=== PATIENT | female | born 1970 | race African-American/Black ===

== ENCOUNTER 2017-07-31 21:28 | Emergency (ER) | payer SELFPAY ==
[2017-07-31] MEDS ORDERED: Morphine 4 MG/ML Carpuject ONE (22:00)
[2017-07-31 22:11] LABS: #Basophils 0.2 thou/uL (0.0-0.2); #Eosinphils 0.1 thou/uL (0.0-0.7); #Lymphocytes 2.9 thou/uL (1.20-3.40); #Monocytes 0.8 thou/uL (0.11-0.59); #Neutrophils 9.2 thou/uL (1.40-6.50); %Basophils 1.3 % (0.0-1.0); %Eosinophils 0.9 % (0.0-10.0); %Lymphocytes 21.6 % (21.0-51.0); %Monocytes 6.4 % (0.0-10.0); %Neutrophils 69.9 % (42.0-75.0); Hemoglobin 14.1 g/dL (12.0-16.0); Mean Corpuscular Hemoglobin 30.5 pg (27.0-31.0); Mean Corpuscular Volume 95.3 fl (81.0-99.0); Mean Platelet Volume 6.1 fL (7.4-10.4); Platelet Count 313 thou/uL (130-400); Red Blood Cell (RBC) Count 4.63 mill/uL (4.20-5.40); White Blood Cell (WBC) Count 13.2 thou/uL (4.8-10.8)
[2017-07-31 22:40] LABS: CKMB 1.1 ng/mL (0-6.6); Troponin I Less than 0.010 ng/mL (< 0.028)
[2017-07-31 22:42] LABS: ALT (SGPT) 12 U/L (8-55); AST (SGOT) 18 U/L (5-34); Albumin 4.5 g/dL (3.5-5.0); Alkaline Phosphatase 69 U/L (40-150); Anion Gap 15 mmol/L (10-20); BUN (Urea Nitrogen) 9 mg/dL (7.0-18.7); Bilirubin, Total 0.5 mg/dL (0.2-1.2); CK (CPK) 131 U/L (29-168); Calc. Creatinine Clearance 0 mL/min (70-130); Calcium 10.3 mg/dL (7.8-10.44); Carbon Dioxide 24 mmol/L (22-29); Chloride 104 mmol/L (98-107); Estimated GFR-MDRD 73; Globulin 3.9 g/dL (2.4-3.5); Glucose 103 mg/dL (70-105); Lipase 17 U/L (8-78); Potassium 3.8 mmol/L (3.5-5.1); Protein, Total 8.4 g/dL (6.0-8.3); Sodium 139 mmol/L (136-145)
--- NOTE | 2017-07-31 22:47 | RAD ---
PORTABLE CHEST: 07/31/17 HISTORY: Chest pain. The lungs are clear. Heart and mediastinum are unremarkable. IMPRESSION: Negative portable chest. POS: [facility]
[2017-07-31] MEDS ORDERED: Ondansetron HCl/PF 4 MG/2 ML Vial ONE ×2 (23:15→23:18)
--- NOTE | 2017-07-31 23:29 | NM ---
VENTILATION PERFUSION LUNG SCAN: 07/31/17 HISTORY: Chest pain. Correlation with portable chest from earlier this evening. Ventilation scan performed using 5 millicuries of inhaled Xenon. Ventilation images are unremarkable. No ventilation defect. No air trapping. Perfusion scan performed with administration of 6 millicuries of technetium labeled MAA IV. The lungs imaged in eight projections. There is normal perfusion bilaterally. There is no evidence of pulmonary embolus. IMPRESSION: Normal VQ scan. POS: [facility]
[2017-08-01] MEDS ORDERED: Promethazine HCl 25 MG/ML VIAL ONE (00:53)
[2017-08-01] MEDS ORDERED: Ketorolac Tromethamine 30 MG/ML VIAL ONE (00:53)
--- NOTE | 2017-08-01 08:44 | ULT ---
PRELIMINARY REPORT/[facility]/EMERGENCY AFTER HOURS PROCEDURE: EXAM: US Abdomen Limited, Right Upper Quadrant EXAM DATE/TIME: 08/01/2017 12:14 AM CLINICAL HISTORY: 46 years old, female; Pain; Other: Ruq, chest pain TECHNIQUE: Real-time ultrasound of the right upper quadrant with image documentation. COMPARISON: No relevant prior studies available. FINDINGS: Liver: Liver is normal in length with normal echogenicity. No intrahepatic bile duct dilation. Gallbladder: Gallbladder does not appear to contain stones. No evidence of gallbladder wall thickenin g. No evidence of pericholecystic fluid. Common bile duct: Common bile duct is normal in width at 3 mm. No stones. No dilation. Pancreas: Visualized portions of the pancreas appear normal. Right kidney: Right kidney 3.8 x 4.6 x 9.7 cm appears normal. No stones. No hydronephrosis. Free fluid: No evidence of free fluid. IMPRESSION: No evidence gallstones, biliary ductal dilatation, gallbladder wall thickening or pericholecystic flu id. Thank you for allowing us to participate in the care of your patient. Dictated and Authenticated by: Edward Barrios MD 08/01/2017 12:59 AM Central Time ([place] & [place]) FINAL REPORT EMERGENT AFTER HOURS RIGHT UPPER QUADRANT ABDOMINAL ULTRASOUND: FINDINGS/IMPRESSION: I agree with the findings and impression given in the preliminary report per [facility] physician. No significant abnormality. POS: [facility]
== END 2017-08-01 03:30 | disposition home or self-care (01) ==
LOC: ERS 21:28
DX: M94.0 Chondrocostal junction syndrome [Tietze] (principal); J45.909 Unspecified asthma, uncomplicated; F17.210 Nicotine dependence, cigarettes, uncomplicated
CPT/HCPCS: 71045; 76705; 78582; 80053; 82553; 83690; 84484; 85025; 93005; 96365; 96375; 99406; A9540; A9558; J1885; J2270; J2405; J2550

== ENCOUNTER 2017-11-23 11:17 | Emergency (ER) | payer SELFPAY ==
--- NOTE | 2017-11-23 13:15 | RAD ---
AP CHEST: Indication: Cough. Comparison: 07-31-17 IMPRESSION: No acute cardiopulmonary abnormality. Examination is not appreciably changed from the comparison stud y. POS: [facility]
== END 2017-11-23 12:52 | disposition home or self-care (01) ==
LOC: ERS 11:17
DX: J18.9 Pneumonia, unspecified organism (principal); F41.9 Anxiety disorder, unspecified; F17.210 Nicotine dependence, cigarettes, uncomplicated; J45.909 Unspecified asthma, uncomplicated
CPT/HCPCS: 71045

== ENCOUNTER 2018-05-05 22:26 | Emergency (ER) | payer SELFPAY ==
--- NOTE | 2018-05-06 13:54 | RAD ---
THREE VIEWS RIGHT FOOT 05/05/18 HISTORY: Right foot pain. FINDINGS: There is no fracture or dislocation seen. The Lisfranc joint is normally aligned. There is a lucency seen within the first metatarsal head which may represent subchondral cystic changes secondary to mil d osteoarthritis involving the first metatarsophalangeal joint. A tiny plantar calcaneal enthesophyte is seen. IMPRESSION: 1. No acute osseous abnormality right foot. 2. 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 POS: [facility]
== END 2018-05-05 23:48 | disposition home or self-care (01) ==
LOC: ERS 22:26
DX: S90.31XA Contusion of right foot, initial encounter (principal); F17.210 Nicotine dependence, cigarettes, uncomplicated; X58.XXXA Exposure to other specified factors, initial encounter

== ENCOUNTER 2018-10-25 02:45 | Emergency (ER) | payer SELFPAY ==
[2018-10-25] MEDS ORDERED: Ondansetron PF 4 MG/2 ML Vial ONE (03:19)
[2018-10-25] MEDS ORDERED: Morphine 4 MG/ML VIAL ONE (03:19)
[2018-10-25 03:24] LABS: #Basophils 0.1 thou/uL (0.0-0.2); #Monocytes 0.5 thou/uL (0.11-0.59); #Neutrophils 13.7 thou/uL (1.40-6.50); %Basophils 0.7 % (0.0-1.0); %Eosinophils 0.1 % (0.0-10.0); %Lymphocytes 12.2 % (21.0-51.0); %Monocytes 2.8 % (0.0-10.0); %Neutrophils 84.2 % (42.0-75.0); Hemoglobin 14.1 g/dL (12.0-16.0); Mean Corpuscular HGB CONC 32.3 g/dL (32.0-36.0); Mean Corpuscular Volume 95.9 fL (78.0-98.0); Mean Platelet Volume 6.4 fL (7.4-10.4); Platelet Count 285 thou/uL (130-400); RBC Distribution Width 13.2 % (11.5-14.5); Red Blood Cell (RBC) Count 4.55 mill/uL (4.20-5.40); White Blood Cell (WBC) Count 16.2 thou/uL (4.8-10.8)
[2018-10-25 03:27] LABS: Bilirubin Negative (Negative); Blood, Urine Negative (Negative); Clarity TURBID (Clear); Glucose, Urine (Dipstick) Negative (Negative); Leukocyte Negative (Negative); Nitrite Negative (Negative); Protein, Urine (Dipstick) 30 mg/dL (Neg-Trace); Specific Gravity, Urine 1.021 (1.002-1.036); Urobilinogen 0.2 mg/dL (0.2-1.0); pH, Urine 8.5 (5.0-9.0)
[2018-10-25 03:29] LABS: Bacteria/HPF None Seen HPF (None Seen); Squamous Epithelial 0-3 HPF (0-3); WBC/HPF 0-3 HPF (0-3)
[2018-10-25 03:37] LABS: Hyaline Casts/LPF NONE SEEN LPF (0-3 Hyaline)
[2018-10-25 03:38] LABS: Crystals/HPF 3+ AMORPH PHOS HPF (Negative)
[2018-10-25 03:41] LABS: ALT (SGPT) 12 U/L (8-55); AST (SGOT) 15 U/L (5-34); Albumin 4.3 g/dL (3.5-5.0); Alkaline Phosphatase 67 U/L (40-150); Anion Gap 12 mmol/L (10-20); BUN (Urea Nitrogen) 8 mg/dL (7.0-18.7); Bilirubin, Total 0.4 mg/dL (0.2-1.2); Calc. Creatinine Clearance 0 mL/min (70-130); Calcium 9.6 mg/dL (7.8-10.44); Carbon Dioxide 23 mmol/L (22-29); Chloride 105 mmol/L (98-107); Estimated GFR-MDRD Greater than 90; Globulin 3.8 g/dL (2.4-3.5); Glucose 121 mg/dL (70-105); Lipase 4 U/L (8-78); Potassium 3.9 mmol/L (3.5-5.1); Protein, Total 8.1 g/dL (6.0-8.3); Sodium 136 mmol/L (136-145)
[2018-10-25] MEDS ORDERED: diphenhydrAMINE 50 MG/ML VIAL ONE (04:14)
[2018-10-25] MEDS ORDERED: methylPREDNISolone Sod Succ/PF 125 MG/2 ML VIAL ONE (04:14)
[2018-10-25] MEDS ORDERED: Famotidine/PF 20 mg/2ml Vial ONE (04:15)
--- NOTE | 2018-10-25 07:05 | CT ---
ABDOMEN AND PELVIS CT WITH CONTRAST: Date: 10/25/18 INDICATION: Abdominal pain with nausea, vomiting, and diarrhea, new onset. FINDINGS: Mild volume loss is present at the lung bases. No acute abnormality of the solid abdominal organs. Ab dominal aorta is normal in caliber. The bowel is not reliably evaluated without enteric contrast. The re is a mild degree of nonspecific wall prominence suggested within the colon, diffusely. There is in completely evaluated hypodensity of left adnexa. No free air or significant ascites. There are mildly prominent bilateral inguinal chain lymph nodes. A small, noninflamed, fat-containing right inguinal hernia is present. No acute osseous abnormalities. IMPRESSION: 1. Findings which may be related to colitis, although incompletely evaluated. Correlate clinically. 2. Incompletely assessed hypodensity at the left adnexa. Recommend dedicated pelvic ultrasound in or neel to further characterize. 3. Nonspecific mild prominence of bilateral inguinal lymph nodes. POS: [facility]
--- NOTE | 2018-10-25 08:18 | ULT ---
PRELIMINARY REPORT/[facility]/EMERGENCY AFTER HOURS PROCEDURE: EXAM: US Abdomen Limited, Right Upper Quadrant EXAM DATE/TIME: 10/25/2018 3:54 AM CLINICAL HISTORY: 48 years old, female; Pain; Other: Upper abd pain, n/v/d TECHNIQUE: Imaging protocol: Real-time ultrasound of the abdomen with image documentation. Examination was focus ed on the right upper quadrant. COMPARISON: No relevant prior studies available. FINDINGS: Liver: Normal sonographic appearance of the liver. Gallbladder: No gallstones, wall thickening or pericholecystic fluid. Negative sonographic Sampson's s ign reported. Common bile duct: No intrahepatic nor extrahepatic biliary dilation. The common bile duct measures 0. 3 cm. Pancreas: The visualized portions of the pancreas are normal. Right kidney: Normal appearance of the right kidney with normal cortical echogenicity and without hyd ronephrosis or mass. The right kidney measures 9.4 x 5 x 5.9 cm. Portal venous: The main portal vein is patent with normal hepatopedal flow. IMPRESSION: Normal right upper quadrant ultrasound. No cholelithiasis. Thank you for allowing us to participate in the care of your patient. Dictated and Authenticated by: Cha Crowe MD 10/25/2018 4:49 AM Central Time ([place] & [place]) FINAL REPORT EMERGENCY AFTER HOURS RIGHT UPPER QUADRANT ULTRASOUND: Date: 10/25/18 HISTORY: Right upper quadrant pain. FINDINGS: Real-time imaging of the right upper quadrant was performed. This shows a normal appearing gallbladde r. Common duct is 2-3 mm. Visualized liver parenchyma shows no focal findings. Right kidney is normal in size and not obstructed. Pancreas is fairly well imaged and normal in appea dagmar. IMPRESSION: Unremarkable right upper quadrant ultrasound. This report is in agreement with the preliminary report issued by [facility]. POS: [facility]
[2018-10-25] MEDS ORDERED: ISOVUE-370 76%-LOCM 1 ML ONE (09:36)
== END 2018-10-25 07:09 | disposition home or self-care (01) ==
LOC: ERS 02:45
DX: K52.9 Noninfective gastroenteritis and colitis, unspecified (principal); J45.909 Unspecified asthma, uncomplicated; F41.9 Anxiety disorder, unspecified; F17.210 Nicotine dependence, cigarettes, uncomplicated
CPT/HCPCS: 36415; 74177; 76705; 80053; 81003; 81015; 83690; 84484; 85025; 96361; 96374; 96375; J1200; J2270; J2405; J2930; Q9966; S0028

== ENCOUNTER 2018-10-26 13:56 | Emergency (ER) | payer SELFPAY ==
[2018-10-26] MEDS ORDERED: Famotidine/PF 20 mg/2ml Vial ONE (14:51)
[2018-10-26] MEDS ORDERED: Ondansetron PF 4 MG/2 ML Vial ONE (14:53)
[2018-10-26 15:05] LABS: #Basophils 0.1 thou/uL (0.0-0.2); #Lymphocytes 2.4 thou/uL (1.20-3.40); #Neutrophils 14.2 thou/uL (1.40-6.50); %Basophils 0.6 % (0.0-1.0); %Eosinophils 0.1 % (0.0-10.0); %Lymphocytes 13.5 % (21.0-51.0); %Monocytes 5.6 % (0.0-10.0); %Neutrophils 80.2 % (42.0-75.0); Mean Corpuscular Hemoglobin 30.4 pg (27.0-31.0); Mean Corpuscular Volume 94.9 fL (78.0-98.0); Mean Platelet Volume 6.4 fL (7.4-10.4); Platelet Count 281 thou/uL (130-400); RBC Distribution Width 13.2 % (11.5-14.5); Red Blood Cell (RBC) Count 4.28 mill/uL (4.20-5.40); White Blood Cell (WBC) Count 17.7 thou/uL (4.8-10.8)
[2018-10-26] MEDS ORDERED: Ketorolac Tromethamine 30 MG/ML VIAL ONE (15:05)
[2018-10-26 15:28] LABS: ALT (SGPT) 13 U/L (8-55); AST (SGOT) 10 U/L (5-34); Albumin 4.1 g/dL (3.5-5.0); Alkaline Phosphatase 60 U/L (40-150); Anion Gap 11 mmol/L (10-20); BUN (Urea Nitrogen) 10 mg/dL (7.0-18.7); Bilirubin, Total 0.5 mg/dL (0.2-1.2); Calc. Creatinine Clearance 0 mL/min (70-130); Calcium 9.4 mg/dL (7.8-10.44); Carbon Dioxide 24 mmol/L (22-29); Chloride 107 mmol/L (98-107); Estimated GFR-MDRD Greater than 90; Globulin 3.5 g/dL (2.4-3.5); Glucose 96 mg/dL (70-105); Lipase 21 U/L (8-78); Potassium 3.4 mmol/L (3.5-5.1); Protein, Total 7.6 g/dL (6.0-8.3); Sodium 139 mmol/L (136-145)
[2018-10-26] MEDS ORDERED: Potassium Chloride 20 MEQ TAB ONE (16:37)
== END 2018-10-26 16:43 | disposition home or self-care (01) ==
LOC: ERS 13:56
DX: R10.13 Epigastric pain (principal); E87.6 Hypokalemia; J45.909 Unspecified asthma, uncomplicated; F41.9 Anxiety disorder, unspecified; F17.210 Nicotine dependence, cigarettes, uncomplicated
CPT/HCPCS: 80053; 83690; 85025; 96361; 96374; 96375; J1885; J2405; S0028

== ENCOUNTER 2019-10-27 09:44 | Emergency (ER) | payer OTHER, SELFPAY | END 2019-10-27 09:58 | disposition home or self-care (01) | LOC: ERS 09:44 | DX: J06.9 Acute upper respiratory infection, unspecified (principal); F41.9 Anxiety disorder, unspecified; J45.909 Unspecified asthma, uncomplicated; F17.210 Nicotine dependence, cigarettes, uncomplicated; Z79.51 Long term (current) use of inhaled steroids; Z79.899 Other long term (current) drug therapy | CPT/HCPCS: 87081; 87430; 99283 ==

== ENCOUNTER 2021-03-04 08:22 | Emergency (ER) | payer SELFPAY ==
[2021-03-04] MEDS ORDERED: Metoclopramide HCl 10 MG/2 ML VIAL ONE (11:05)
[2021-03-04] MEDS ORDERED: diphenhydrAMINE 50 MG/ML VIAL ONE (11:05)
[2021-03-04] MEDS ORDERED: methylPREDNISolone Sod Succ 40 MG VIAL ONE (11:08)
[2021-03-04 11:22] LABS: #Basophils 0.1 thou/uL (0.0-0.2); #Eosinphils 0.1 thou/uL (0.0-0.7); #Lymphocytes 2.1 thou/uL (1.20-3.40); #Monocytes 0.7 thou/uL (0.11-0.59); #Neutrophils 9.2 thou/uL (1.40-6.50); %Basophils 0.4 % (0.0-1.0); %Eosinophils 0.8 % (0.0-10.0); %Lymphocytes 17.5 % (21.0-51.0); %Neutrophils 75.3 % (42.0-75.0); Hemoglobin 13.1 g/dL (12.0-16.0); Mean Corpuscular HGB CONC 32.2 g/dL (32.0-36.0); Mean Corpuscular Hemoglobin 30.3 pg (27.0-31.0); Mean Corpuscular Volume 94.2 fL (78.0-98.0); Mean Platelet Volume 6.5 fL (7.4-10.4); Platelet Count 295 thou/uL (130-400); Red Blood Cell (RBC) Count 4.32 mill/uL (4.20-5.40); White Blood Cell (WBC) Count 12.2 thou/uL (4.8-10.8)
[2021-03-04 11:43] LABS: Anion Gap 9 mmol/L (10-20); BUN (Urea Nitrogen) 11 mg/dL (7.0-18.7); Calc. Creatinine Clearance 0 mL/min (70-130); Calcium 9.4 mg/dL (7.8-10.44); Carbon Dioxide 28 mmol/L (22-29); Chloride 104 mmol/L (98-107); Glucose 94 mg/dL (70-105); Potassium 3.8 mmol/L (3.5-5.1); Sodium 137 mmol/L (136-145)
[2021-03-04] MEDS ORDERED: Iopamidol-370 76% 500 ML 1 ML ONE (15:09)
== END 2021-03-04 13:51 | disposition home or self-care (01) ==
LOC: ERS 08:22
DX: R20.2 Paresthesia of skin (principal); R51.9 Headache, unspecified; J45.909 Unspecified asthma, uncomplicated; I10 Essential (primary) hypertension; D72.829 Elevated white blood cell count, unspecified; F17.210 Nicotine dependence, cigarettes, uncomplicated
CPT/HCPCS: 36415; 70496; 70498; 80048; 85025; 93005; 96374; 96375; J1200; J2765; J2920; Q9967

== ENCOUNTER 2021-03-31 16:24 | Emergency (ER) | payer SELFPAY ==
[2021-03-31] MEDS ORDERED: Lorazepam 2 MG/ML VIAL ONE (16:54)
[2021-03-31 17:24] LABS: #Basophils 0.1 thou/uL (0.0-0.2); #Eosinphils 0.2 thou/uL (0.0-0.7); #Lymphocytes 2.2 thou/uL (1.20-3.40); #Monocytes 0.6 thou/uL (0.11-0.59); #Neutrophils 11.6 thou/uL (1.40-6.50); %Basophils 0.7 % (0.0-1.0); %Eosinophils 1.2 % (0.0-10.0); %Monocytes 4.3 % (0.0-10.0); %Neutrophils 78.8 % (42.0-75.0); Hemoglobin 12.5 g/dL (12.0-16.0); Mean Corpuscular HGB CONC 33.3 g/dL (32.0-36.0); Mean Corpuscular Hemoglobin 31.3 pg (27.0-31.0); Mean Corpuscular Volume 93.9 fL (78.0-98.0); Mean Platelet Volume 6.1 fL (7.4-10.4); Platelet Count 301 thou/uL (130-400); RBC Distribution Width 13.6 % (11.5-14.5); White Blood Cell (WBC) Count 14.7 thou/uL (4.8-10.8)
[2021-03-31] MEDS ORDERED: Acetaminophen 500 MG TAB ONE (17:25)
[2021-03-31 17:39] LABS: BHCG - Serum Negative (NEGATIVE); Pregs Control Background? CLEAR/WHITE (CLR/WHITE); Pregs Control Bar Appear? YES (CONTROL BAR)
[2021-03-31 17:47] LABS: ALT (SGPT) 9 U/L (8-55); AST (SGOT) 14 U/L (5-34); Albumin 3.9 g/dL (3.5-5.0); Alkaline Phosphatase 81 U/L (40-110); Anion Gap 12 mmol/L (10-20); BUN (Urea Nitrogen) 9 mg/dL (7.0-18.7); Bilirubin, Total 0.4 mg/dL (0.2-1.2); Calc. Creatinine Clearance 0 mL/min (70-130); Calcium 9.5 mg/dL (7.8-10.44); Carbon Dioxide 25 mmol/L (22-29); Chloride 104 mmol/L (98-107); Globulin 3.2 g/dL (2.4-3.5); Glucose 93 mg/dL (70-105); Potassium 3.3 mmol/L (3.5-5.1); Protein, Total 7.1 g/dL (6.0-8.3); Sodium 138 mmol/L (136-145)
== END 2021-03-31 18:55 | disposition home or self-care (01) ==
LOC: ERS 16:24
DX: R06.4 Hyperventilation (principal); J45.909 Unspecified asthma, uncomplicated; I10 Essential (primary) hypertension; Z79.899 Other long term (current) drug therapy
CPT/HCPCS: 36415; 80053; 84703; 85025; 93005; 96374; J2060

== ENCOUNTER 2022-08-05 08:26 | Emergency (ER) | payer SELFPAY ==
[2022-08-05] MEDS ORDERED: Ondansetron ODT 4 MG TAB ONE (09:05)
== END 2022-08-05 09:30 | disposition home or self-care (01) ==
LOC: ERS 08:26
DX: K52.9 Noninfective gastroenteritis and colitis, unspecified (principal); I10 Essential (primary) hypertension; F17.210 Nicotine dependence, cigarettes, uncomplicated
CPT/HCPCS: 99283; Q0162

== ENCOUNTER 2022-08-11 15:30 | Emergency (ER) | payer SELFPAY ==
[2022-08-11 17:01] LABS: #Basophils 0.1 thou/uL (0.0-0.2); #Lymphocytes 2.1 thou/uL (1.20-3.40); #Neutrophils 9.1 thou/uL (1.40-6.50); %Basophils 0.6 % (0.0-1.0); %Eosinophils 0.4 % (0.0-10.0); %Monocytes 8.4 % (0.0-10.0); %Neutrophils 73.6 % (42.0-75.0); Hemoglobin 14.4 g/dL (12.0-16.0); Mean Corpuscular HGB CONC 31.9 g/dL (32.0-36.0); Mean Corpuscular Hemoglobin 29.7 pg (27.0-31.0); Mean Corpuscular Volume 93.2 fl (78.0-98.0); Mean Platelet Volume 7.4 fL (7.4-10.4); Platelet Count 299 10x3/uL (130-400); RBC Distribution Width 13.1 % (11.5-14.5); Red Blood Cell (RBC) Count 4.83 mill/uL (4.20-5.40); White Blood Cell (WBC) Count 12.3 10x3/uL (4.8-10.8)
[2022-08-11 19:22] LABS: ALT (SGPT) Less than 7 U/L (8-55); AST (SGOT) 15 U/L (5-34); Alkaline Phosphatase 64 U/L (40-110); Anion Gap 18 mmol/L (10-20); BUN (Urea Nitrogen) 51 mg/dL (7.0-18.7); Bilirubin, Total 0.7 mg/dL (0.2-1.2); Calc. Creatinine Clearance 0 mL/min (70-130); Calcium 9.1 mg/dL (7.8-10.44); Carbon Dioxide 25 mmol/L (22-29); Chloride 94 mmol/L (98-107); Estimated GFR 11; Globulin 3.2 g/dL (2.4-3.5); Glucose 103 mg/dL (70-105); Protein, Total 7.2 g/dL (6.0-8.3); Sodium 134 mmol/L (136-145)
== END 2022-08-11 19:23 | disposition left against medical advice (07) ==
LOC: ERS 15:30
DX: Z53.21 Procedure and treatment not carried out due to patient leaving prior to being seen by health care provider (principal)
CPT/HCPCS: 36415; 80053; 83690; 85025

== ENCOUNTER 2022-08-12 08:34 | Inpatient (IN) | payer SELFPAY ==
[2022-08-12 11:12] LABS: ALT (SGPT) 10 U/L (8-55); AST (SGOT) 19 U/L (5-34); Alkaline Phosphatase 64 U/L (40-110); Anion Gap 15 mmol/L (10-20); BUN (Urea Nitrogen) 55 mg/dL (7.0-18.7); Bilirubin, Total 0.4 mg/dL (0.2-1.2); Calc. Creatinine Clearance 0 mL/min (70-130); Calcium 9.5 mg/dL (7.8-10.44); Carbon Dioxide 27 mmol/L (22-29); Chloride 95 mmol/L (98-107); Estimated GFR 11; Globulin 3.7 g/dL (2.4-3.5); Glucose 105 mg/dL (70-105); Lipase 12 U/L (8-78); Potassium 2.7 mmol/L (3.5-5.1); Protein, Total 7.7 g/dL (6.0-8.3); Sodium 134 mmol/L (136-145)
[2022-08-12] MEDS ORDERED: Ondansetron PF 4 MG/2 ML Vial ONE (11:25)
[2022-08-12] MEDS ORDERED: Potassium Chloride 20 MEQ/100 ML PREMIX BAG ONE (11:25)
[2022-08-12 11:49] LABS: #Basophils 0.1 thou/uL (0.0-0.2); #Eosinphils 0.1 thou/uL (0.0-0.7); #Lymphocytes 2.4 thou/uL (1.20-3.40); #Monocytes 1.3 thou/uL (0.11-0.59); #Neutrophils 9.6 thou/uL (1.40-6.50); %Basophils 0.8 % (0.0-1.0); %Eosinophils 0.4 % (0.0-10.0); %Monocytes 9.5 % (0.0-10.0); %Neutrophils 71.3 % (42.0-75.0); Hemoglobin 13.6 g/dL (12.0-16.0); Mean Corpuscular HGB CONC 32.4 g/dL (32.0-36.0); Mean Corpuscular Volume 92.6 fl (78.0-98.0); Platelet Count 287 10x3/uL (130-400); Red Blood Cell (RBC) Count 4.54 mill/uL (4.20-5.40); White Blood Cell (WBC) Count 13.5 10x3/uL (4.8-10.8)
[2022-08-12] MEDS: Potassium Chloride 20 MEQ in Premix Bag 1 BAG IVPB SCH ×2 (12:42→12:44)
[2022-08-12 12:47] LABS: Amphetamine Not Detected (NotDetected); Barbiturates Screen Not Detected (NotDetected); Benzodiazepine Screen Not Detected (NotDetected); Cocaine Metabolite Screen Not Detected (NotDetected); Methadone Not Detected (NotDetected); Methamphetamine Not Detected (NotDetected); Opiate Screen Not Detected (NotDetected); Oxycodone Screen Not Detected (NotDetected); Phencyclidine (PCP) Not Detected (NotDetected); THC/Cannabinoid Screen Not Detected (NotDetected); Tricyclic Screen Not Detected (NotDetected)
[2022-08-12 13:26] LABS: Bacteria/HPF 2+ HPF (None Seen); Bilirubin Negative (Negative); Blood, Urine Negative (Negative); Clarity Clear (Clear); Glucose, Urine (Dipstick) Normal (Negative); Ketone, Urine Negative (Negative); Leukocyte 75 Leu/uL (Negative); Nitrite Negative (Negative); Protein, Urine (Dipstick) Negative (Neg-Trace); RBC/HPF None Seen HPF (0-3); Specific Gravity, Urine 1.006 (1.002-1.036); Squamous Epithelial 0-3 HPF (0-3); Urobilinogen Normal mg/dL (Less than 2)
[2022-08-12 14:35] LABS: #Basophils 0.1 thou/uL (0.0-0.2); #Eosinphils 0.1 thou/uL (0.0-0.7); #Lymphocytes 2.2 thou/uL (1.20-3.40); #Monocytes 1.7 thou/uL (0.11-0.59); %Basophils 0.8 % (0.0-1.0); %Eosinophils 0.7 % (0.0-10.0); %Lymphocytes 15.6 % (21.0-51.0); %Monocytes 12.1 % (0.0-10.0); %Neutrophils 70.9 % (42.0-75.0); Hemoglobin 13.5 g/dL (12.0-16.0); Mean Corpuscular HGB CONC 32.4 g/dL (32.0-36.0); Mean Corpuscular Hemoglobin 30.9 pg (27.0-31.0); Mean Corpuscular Volume 95.1 fl (78.0-98.0); Mean Platelet Volume 8.2 fL (7.4-10.4); Platelet Count 235 10x3/uL (130-400); Red Blood Cell (RBC) Count 4.39 mill/uL (4.20-5.40); White Blood Cell (WBC) Count 14.1 10x3/uL (4.8-10.8)
[2022-08-12 14:51] LABS: Troponin I Less than 0.010 ng/mL (< 0.028)
[2022-08-12 15:29] VITALS: BMI 25.2
[2022-08-12] MEDS ORDERED: FLU VACC QS2022-23(6MOS UP)/PF 60 MCG/0.5 ML SYRINGE IM ONE (15:30)
[2022-08-12 17:33] LABS: Troponin I Less than 0.010 ng/mL (< 0.028)
[2022-08-12] MEDS ORDERED: Ondansetron PF 4 MG/2 ML Vial IVP PRN (17:36)
[2022-08-12] MEDS ORDERED: Acetaminophen 650 MG Suppository PR PRN (17:36)
[2022-08-12] MEDS ORDERED: Ondansetron ODT 4 MG TAB PO PRN (17:36)
[2022-08-12] MEDS ORDERED: cefTRIAXone\\ROCEPHIN 1 GM in Sodium Chloride 0.9% 100 ML IVPB SCH (18:00)
[2022-08-12] MEDS ORDERED: Electrolyte Replacement Protocol 1 EACH FS SCH (18:00)
[2022-08-12] MEDS ORDERED: Potassium Chloride 20 MEQ TAB PO SCH (18:15)
[2022-08-12] MEDS ORDERED: Electrolyte Replacement Protocol FS PRN (18:15)
[2022-08-12] MEDS: Sodium Chloride 0.9% 1,000 ML IV SCH (18:18)
[2022-08-12 18:27] LABS: Magnesium 2.5 mg/dL (1.6-2.6)
[2022-08-12 19:19] LABS: SARS-CoV-2 NAA Rapid Test Not Detected (NotDetected)
[2022-08-12] MEDS: Acetaminophen 325 MG TAB PO PRN (21:42)
[2022-08-13] MEDS: Sodium Chloride 0.9% 1,000 ML IV SCH ×4 (05:10→22:55)
[2022-08-13 05:29] LABS: %Neutrophils 66.7 % (42.0-75.0); Hemoglobin 12.4 g/dL (12.0-16.0); Mean Corpuscular Hemoglobin 29.9 pg (27.0-31.0); Mean Corpuscular Volume 93.5 fl (78.0-98.0); Mean Platelet Volume 7.6 fL (7.4-10.4); Platelet Count 283 10x3/uL (130-400); RBC Distribution Width 12.9 % (11.5-14.5); Red Blood Cell (RBC) Count 4.16 mill/uL (4.20-5.40); White Blood Cell (WBC) Count 10.6 10x3/uL (4.8-10.8)
[2022-08-13 05:30] LABS: #Basophils 0.1 thou/uL (0.0-0.2); #Eosinphils 0.1 thou/uL (0.0-0.7); #Lymphocytes 2.3 thou/uL (1.20-3.40); #Monocytes 1.1 thou/uL (0.11-0.59); #Neutrophils 7.1 thou/uL (1.40-6.50); %Basophils 0.7 % (0.0-1.0); %Eosinophils 0.7 % (0.0-10.0); %Lymphocytes 21.6 % (21.0-51.0); %Monocytes 10.2 % (0.0-10.0)
[2022-08-13 05:47] LABS: Anion Gap 11 mmol/L (10-20); BUN (Urea Nitrogen) 40 mg/dL (7.0-18.7); Calc. Creatinine Clearance 25 mL/min (70-130); Calcium 8.6 mg/dL (7.8-10.44); Carbon Dioxide 27 mmol/L (22-29); Chloride 103 mmol/L (98-107); Estimated GFR 16; Glucose 99 mg/dL (70-105); Magnesium 2.4 mg/dL (1.6-2.6); Sodium 138 mmol/L (136-145)
[2022-08-13 05:51] LABS: Potassium 2.6 mmol/L (3.5-5.1)
[2022-08-13] MEDS ORDERED: Aspirin 325 MG TAB PO SCH (06:30)
[2022-08-13] MEDS ORDERED: Nitroglycerin 0.4 MG TAB (25 Tab Bottle) SL SCH (06:30)
[2022-08-13] MEDS ORDERED: Electrolyte Replacement Protocol FS PRN (06:30)
[2022-08-13] MEDS ORDERED: Potassium Chloride 20 MEQ TAB PO SCH ×3 (08:00→17:45)
[2022-08-13 09:19] LABS: Troponin I Less than 0.010 ng/mL (< 0.028)
[2022-08-13 11:15] LABS: Campy jejuni + coli by PCR Negative (Negative); STEC Shiga Toxin 1+2 Negative (Negative); Salmonella spp. by PCR Negative (Negative); Shigella spp + EIEC by PCR Negative (Negative)
[2022-08-13] MEDS ORDERED: Loperamide HCl 2 MG CAP PO PRN (15:34)
[2022-08-13] MEDS: Acetaminophen 325 MG TAB PO PRN (22:54)
[2022-08-14 04:10] LABS: #Basophils 0.1 thou/uL (0.0-0.2); #Eosinphils 0.1 thou/uL (0.0-0.7); #Lymphocytes 2.6 thou/uL (1.20-3.40); #Neutrophils 5.9 thou/uL (1.40-6.50); %Basophils 0.8 % (0.0-1.0); %Eosinophils 1.1 % (0.0-10.0); %Lymphocytes 26.7 % (21.0-51.0); %Monocytes 10.5 % (0.0-10.0); Hemoglobin 11.1 g/dL (12.0-16.0); Mean Corpuscular HGB CONC 32.9 g/dL (32.0-36.0); Mean Corpuscular Hemoglobin 30.9 pg (27.0-31.0); Mean Corpuscular Volume 93.9 fl (78.0-98.0); Mean Platelet Volume 7.1 fL (7.4-10.4); Platelet Count 268 10x3/uL (130-400); RBC Distribution Width 12.9 % (11.5-14.5); Red Blood Cell (RBC) Count 3.58 mill/uL (4.20-5.40); White Blood Cell (WBC) Count 9.6 10x3/uL (4.8-10.8)
[2022-08-14 04:38] LABS: Anion Gap 10 mmol/L (10-20); BUN (Urea Nitrogen) 26 mg/dL (7.0-18.7); Calc. Creatinine Clearance 34 mL/min (70-130); Calcium 8.2 mg/dL (7.8-10.44); Carbon Dioxide 22 mmol/L (22-29); Chloride 111 mmol/L (98-107); Estimated GFR 22; Glucose 99 mg/dL (70-105); Potassium 3.1 mmol/L (3.5-5.1); Sodium 140 mmol/L (136-145)
[2022-08-14] MEDS: Sodium Chloride 0.9% 1,000 ML IV SCH ×4 (06:33→20:20)
[2022-08-14] MEDS: Acetaminophen 325 MG TAB PO PRN (09:01)
[2022-08-14] MEDS ORDERED: Potassium Chloride 20 MEQ TAB PO SCH ×2 (09:15→17:15)
[2022-08-14] MEDS: cloNIDine 0.1 MG TAB PO PRN (20:18)
[2022-08-15] MEDS: Acetaminophen 325 MG TAB PO PRN ×5 (01:24→23:34)
[2022-08-15] MEDS: cloNIDine 0.1 MG TAB PO PRN ×3 (01:25→12:13)
[2022-08-15] MEDS ORDERED: Ipratropium/Albuterol 3 ML NEB NEB SCH (01:45)
[2022-08-15 02:25] LABS: #Basophils 0.1 thou/uL (0.0-0.2); #Eosinphils 0.1 thou/uL (0.0-0.7); #Monocytes 0.8 thou/uL (0.11-0.59); #Neutrophils 7.7 thou/uL (1.40-6.50); %Basophils 0.6 % (0.0-1.0); %Eosinophils 0.7 % (0.0-10.0); %Lymphocytes 10.8 % (21.0-51.0); %Monocytes 8.1 % (0.0-10.0); %Neutrophils 79.8 % (42.0-75.0); Hemoglobin 10.6 g/dL (12.0-16.0); Mean Corpuscular HGB CONC 32.2 g/dL (32.0-36.0); Mean Corpuscular Hemoglobin 30.2 pg (27.0-31.0); Mean Corpuscular Volume 93.8 fl (78.0-98.0); Mean Platelet Volume 8.8 fL (7.4-10.4); Platelet Count 186 10x3/uL (130-400); RBC Distribution Width 13.3 % (11.5-14.5); Red Blood Cell (RBC) Count 3.49 mill/uL (4.20-5.40); White Blood Cell (WBC) Count 9.6 10x3/uL (4.8-10.8)
[2022-08-15 02:56] LABS: Anion Gap 11 mmol/L (10-20); BUN (Urea Nitrogen) 15 mg/dL (7.0-18.7); Calc. Creatinine Clearance 42 mL/min (70-130); Carbon Dioxide 19 mmol/L (22-29); Chloride 108 mmol/L (98-107); Estimated GFR 29; Glucose 134 mg/dL (70-105); Potassium 3.1 mmol/L (3.5-5.1); Sodium 135 mmol/L (136-145)
[2022-08-15 05:26] LABS: SARS-CoV-2 NAA Rapid Test DETECTED (NotDetected)
[2022-08-15] MEDS ORDERED: Acetaminophen 650 MG Suppository PR PRN (06:07)
[2022-08-15] MEDS ORDERED: Potassium Bicarbonate/Cit Ac 20 MEQ TAB PO SCH (08:00)
[2022-08-15] MEDS ORDERED: Potassium Chloride 20 MEQ TAB PO SCH (08:15)
[2022-08-15] MEDS: Sodium Chloride 0.9% 1,000 ML IV SCH ×3 (08:54→23:31)
[2022-08-15] MEDS ORDERED: Cholecalciferol (Vitamin D3) 400 UNITS TAB PO SCH (09:00)
[2022-08-15] MEDS ORDERED: Ascorbic Acid 500 mg Chewable Tablet PO SCH (09:00)
[2022-08-15] MEDS ORDERED: Zinc Sulfate 220 MG CAP PO SCH (09:00)
[2022-08-15] MEDS ORDERED: NIFEdipine XL 30 MG TAB PO SCH (14:00)
[2022-08-15] MEDS: Heparin 5,000 UNITS/ML VIAL SC SCH ×2 (14:05→19:49)
[2022-08-15] MEDS: Cholecalciferol 1,000 UNITS (25 MCG) TAB PO SCH (19:48)
[2022-08-15] MEDS: Zinc Sulfate 220 MG CAP PO SCH (19:48)
[2022-08-16] MEDS: Acetaminophen 325 MG TAB PO PRN ×5 (03:21→19:56)
[2022-08-16 04:38] LABS: #Basophils 0.1 thou/uL (0.0-0.2); #Lymphocytes 1.4 thou/uL (1.20-3.40); #Monocytes 1.1 thou/uL (0.11-0.59); #Neutrophils 5.6 thou/uL (1.40-6.50); %Basophils 1.2 % (0.0-1.0); %Eosinophils 0.1 % (0.0-10.0); %Lymphocytes 17.2 % (21.0-51.0); %Monocytes 13.3 % (0.0-10.0); %Neutrophils 68.3 % (42.0-75.0); Hemoglobin 11.3 g/dL (12.0-16.0); Mean Corpuscular HGB CONC 33.1 g/dL (32.0-36.0); Mean Corpuscular Hemoglobin 30.9 pg (27.0-31.0); Mean Corpuscular Volume 93.5 fl (78.0-98.0); Mean Platelet Volume 6.8 fL (7.4-10.4); Platelet Count 232 10x3/uL (130-400); RBC Distribution Width 13.2 % (11.5-14.5); Red Blood Cell (RBC) Count 3.64 mill/uL (4.20-5.40); White Blood Cell (WBC) Count 8.1 10x3/uL (4.8-10.8)
[2022-08-16 05:04] LABS: Anion Gap 10 mmol/L (10-20); BUN (Urea Nitrogen) 10 mg/dL (7.0-18.7); Calc. Creatinine Clearance 53 mL/min (70-130); Calcium 8.1 mg/dL (7.8-10.44); Carbon Dioxide 25 mmol/L (22-29); Chloride 104 mmol/L (98-107); Estimated GFR 38; Glucose 95 mg/dL (70-105); Sodium 136 mmol/L (136-145)
[2022-08-16] MEDS ORDERED: Potassium Chloride 20 MEQ TAB PO SCH ×2 (08:00→17:00)
[2022-08-16] MEDS: NIFEdipine XL 30 MG TAB PO SCH (08:41)
[2022-08-16] MEDS: Ascorbic Acid 500 mg Chewable Tablet PO SCH (08:41)
[2022-08-16] MEDS: Sodium Chloride 0.9% 1,000 ML IV SCH (08:43)
[2022-08-16] MEDS: Heparin 5,000 UNITS/ML VIAL SC SCH ×3 (08:43→19:57)
[2022-08-16] MEDS: Cholecalciferol 1,000 UNITS (25 MCG) TAB PO SCH (19:55)
[2022-08-16] MEDS: Zinc Sulfate 220 MG CAP PO SCH (19:56)
[2022-08-17] MEDS: Sodium Chloride 0.9% 1,000 ML IV SCH (02:14)
[2022-08-17] MEDS: Acetaminophen 325 MG TAB PO PRN ×2 (02:14→06:41)
[2022-08-17 05:10] LABS: Anion Gap 15 mmol/L (10-20); BUN (Urea Nitrogen) 9 mg/dL (7.0-18.7); Calc. Creatinine Clearance 73 mL/min (70-130); Calcium 7.9 mg/dL (7.8-10.44); Carbon Dioxide 20 mmol/L (22-29); Chloride 104 mmol/L (98-107); Estimated GFR 56; Glucose 94 mg/dL (70-105); Potassium 3.5 mmol/L (3.5-5.1); Sodium 135 mmol/L (136-145)
[2022-08-17] MEDS ORDERED: Potassium Chloride 20 MEQ TAB PO SCH (08:00)
[2022-08-17] MEDS: Ascorbic Acid 500 mg Chewable Tablet PO SCH (10:15)
[2022-08-17] MEDS: Heparin 5,000 UNITS/ML VIAL SC SCH (10:15)
[2022-08-17] MEDS: NIFEdipine XL 30 MG TAB PO SCH (10:15)
[2022-08-17 12:39] VITALS: BP 142/84; TEMP 97.9
== END 2022-08-17 13:08 | disposition home or self-care (01) | DRG 682 ==
LOC: ERS 08:34 → ERHOLD 12:09 → 2NO 14:51
PROVIDERS: ADMIT Hospitalist; ATTEND Internal Medicine
DX: N17.9 Acute kidney failure, unspecified (principal); U07.1 COVID-19; E87.1 Hypo-osmolality and hyponatremia; E87.6 Hypokalemia; J45.909 Unspecified asthma, uncomplicated; F41.9 Anxiety disorder, unspecified; F31.9 Bipolar disorder, unspecified; F17.210 Nicotine dependence, cigarettes, uncomplicated; F12.10 Cannabis abuse, uncomplicated; R19.7 Diarrhea, unspecified; I12.9 Hypertensive chronic kidney disease with stage 1 through stage 4 chronic kidney disease, or unspecified chronic kidney disease; E86.0 Dehydration; N18.30 Chronic kidney disease, stage 3 unspecified; Z91.041 Radiographic dye allergy status; Z90.710 Acquired absence of both cervix and uterus; Z88.1 Allergy status to other antibiotic agents; Z88.2 Allergy status to sulfonamides; Z88.0 Allergy status to penicillin; Z79.899 Other long term (current) drug therapy
CPT/HCPCS: 36415; 71045; 74176; 76770; 80048; 80053; 80306; 81003; 81015; 82088; 83630; 83690; 83735; 83880; 84244; 84484; 85025; 87324; 87328; 87329; 87449; 87505; 93005; 93010; 93306; 94640; 96361; 96374; J1644; J2405; J3480; J7050; J7620; Q0162

== ENCOUNTER 2023-11-17 08:22 | Emergency (ER) | payer SELFPAY ==
[2023-11-17] MEDS ORDERED: Ibuprofen 200 MG TAB ONE (09:44)
[2023-11-17] MEDS ORDERED: Ondansetron ODT 4 MG TAB ONE ×2 (09:46→09:47)
[2023-11-17 10:36] LABS: #Basophils 0.04 10x3/uL (0.0-0.2); %Basophils 0.5 % (0.0-1.0); %Eosinophils 2.2 % (0.0-10.0); %Lymphocytes 29.4 % (21.0-51.0); %Monocytes 6.9 % (0.0-10.0); %Neutrophils 60.9 % (42.0-75.0); Hematocrit 43.4 % (36.0-47.0); Hemoglobin 13.9 g/dL (12.0-16.0); Mean Corpuscular Hemoglobin 29.4 pg (27.0-31.0); Mean Corpuscular Volume 91.8 fL (78.0-98.0); Mean Platelet Volume 9.6 fL (7.4-10.4); Platelet Count 252 10x3/uL (130-400); RBC Distribution Width 15.7 % (11.5-14.5); Red Blood Cell (RBC) Count 4.73 mill/uL (4.20-5.40)
[2023-11-17 10:50] LABS: Globulin 3.8 g/dL (2.4-3.5)
[2023-11-17 10:55] LABS: ALT (SGPT) 20 U/L (8-55); AST (SGOT) 21 U/L (5-34); Albumin 3.6 g/dL (3.5-5.0); Alkaline Phosphatase 76 U/L (40-110); Anion Gap 13 mmol/L (10-20); BUN (Urea Nitrogen) 8 mg/dL (9.8-20.1); Bilirubin, Total 0.2 mg/dL (0.2-1.2); Calc. Creatinine Clearance 0 mL/min (70-130); Calcium 9.2 mg/dL (7.8-10.44); Carbon Dioxide 20 mmol/L (22-29); Chloride 108 mmol/L (98-107); Estimated GFR 90; Glucose 97 mg/dL (70-105); Potassium 4.2 mmol/L (3.5-5.1); Protein, Total 7.4 g/dL (6.0-8.3); Sodium 137 mmol/L (136-145)
== END 2023-11-17 12:16 | disposition home or self-care (01) ==
LOC: ERS 08:22
DX: J18.9 Pneumonia, unspecified organism (principal); I10 Essential (primary) hypertension; F17.210 Nicotine dependence, cigarettes, uncomplicated
CPT/HCPCS: 36415; 71045; 80053; 85025; 93005; Q0162

== ENCOUNTER 2024-02-07 21:29 | Emergency (ER) | payer SELFPAY ==
[2024-02-07] MEDS ORDERED: Lorazepam 2 MG/ML VIAL ONE (22:06)
[2024-02-07 22:37] LABS: Actual Bicarbonate (HCO3v) 16.9 mEq/L (22-28); Base Excess -1.6 mEq/L (-2.0 to +3.0); Calcium, Ionized (venous) 1.13 mmol/L (1.16-1.32); Chloride (VBG) 102 mmol/L (98-106); Hematocrit-VBG 46 % (36.0-47.0); Hemoglobin (Hb) 15.6 g/dL (11.7-16.0); Potassium (VBG) 3.15 mmol/L (3.70-5.30); Sodium 138 mmol/L (133-146); pH (venous) 7.596 (7.32-7.43)
[2024-02-07 23:00] LABS: #Basophils 0.04 10x3/uL (0.0-0.2); %Basophils 0.3 % (0.0-1.0); %Eosinophils 0.3 % (0.0-10.0); %Lymphocytes 27.5 % (21.0-51.0); %Monocytes 9.8 % (0.0-10.0); %Neutrophils 61.9 % (42.0-75.0); Hematocrit 44.1 % (36.0-47.0); Hemoglobin 14.7 g/dL (12.0-16.0); Mean Corpuscular HGB CONC 33.3 g/dL (32.0-36.0); Mean Corpuscular Hemoglobin 29.8 pg (27.0-31.0); Mean Corpuscular Volume 89.3 fL (78.0-98.0); Mean Platelet Volume 9.4 fL (7.4-10.4); Platelet Count 237 10x3/uL (130-400); Red Blood Cell (RBC) Count 4.94 mill/uL (4.20-5.40)
[2024-02-07] MEDS ORDERED: Famotidine/PF 20 mg/2ml Vial ONE (23:21)
[2024-02-07] MEDS ORDERED: methylPREDNISolone Sod Succ/PF 125 MG/2 ML VIAL ONE (23:21)
[2024-02-07] MEDS ORDERED: diphenhydrAMINE 50 MG/ML VIAL ONE (23:21)
[2024-02-07 23:37] LABS: ALT (SGPT) 13 U/L (8-55); AST (SGOT) 17 U/L (5-34); Albumin 4.2 g/dL (3.5-5.0); Alkaline Phosphatase 95 U/L (40-110); Anion Gap 20 mmol/L (10-20); BUN (Urea Nitrogen) 10 mg/dL (9.8-20.1); Bilirubin, Total 1.3 mg/dL (0.2-1.2); Calc. Creatinine Clearance 0 mL/min (70-130); Calcium 10.1 mg/dL (7.8-10.44); Carbon Dioxide 13 mmol/L (22-29); Chloride 106 mmol/L (98-107); Estimated GFR 78; Globulin 4.7 g/dL (2.4-3.5); Glucose 137 mg/dL (70-105); Potassium 3.1 mmol/L (3.5-5.1); Protein, Total 8.9 g/dL (6.0-8.3); Sodium 136 mmol/L (136-145)
[2024-02-07 23:39] LABS: Troponin I Less than 0.010 ng/mL (< 0.028)
[2024-02-08 06:31] LABS: Influenza A by NAA Not Detected (NotDetected); Influenza B by NAA Not Detected (NotDetected); SARS-CoV-2 NAA Rapid Test Not Detected (NotDetected)
[2024-02-08] MEDS ORDERED: Iopamidol 370 76% 100 ML VIAL ONE (10:00)
== END 2024-02-08 02:23 | disposition home or self-care (01) ==
LOC: ERS 21:29
DX: R07.89 Other chest pain (principal); R06.4 Hyperventilation; I10 Essential (primary) hypertension; F17.210 Nicotine dependence, cigarettes, uncomplicated
CPT/HCPCS: 36415; 70450; 71045; 71275; 80053; 82805; 83880; 84484; 85025; 93005; 96374; 96375; J1200; J2060; J2930; J3490; Q9967

== ENCOUNTER 2024-04-26 18:46 | Emergency (ER) | payer SELFPAY ==
[~2024-04-26 18:46] MED LIST: Iopamidol-370 76% 500 ML MDV (1 ML CHARGE) ONE
[2024-04-26] MEDS ORDERED: diphenhydrAMINE 50 MG/ML VIAL ONE (20:03)
[2024-04-26] MEDS ORDERED: methylPREDNISolone Sod Succ/PF 125 MG/2 ML VIAL ONE (20:03)
[2024-04-26] MEDS ORDERED: Famotidine/PF 20 mg/2ml Vial ONE (20:03)
[2024-04-26 20:28] LABS: #Basophils 0.04 10x3/uL (0.0-0.2); %Basophils 0.3 % (0.0-1.0); %Eosinophils 0.7 % (0.0-10.0); %Lymphocytes 21.7 % (21.0-51.0); %Monocytes 6.7 % (0.0-10.0); %Neutrophils 70.3 % (42.0-75.0); Hematocrit 41.9 % (36.0-47.0); Hemoglobin 13.5 g/dL (12.0-16.0); Mean Corpuscular HGB CONC 32.2 g/dL (32.0-36.0); Mean Corpuscular Hemoglobin 29.3 pg (27.0-31.0); Mean Corpuscular Volume 90.9 fL (78.0-98.0); Mean Platelet Volume 8.6 fL (7.4-10.4); Platelet Count 278 10x3/uL (130-400); RBC Distribution Width 15.2 % (11.5-14.5); Red Blood Cell (RBC) Count 4.61 mill/uL (4.20-5.40)
[2024-04-26] MEDS ORDERED: Ondansetron PF 4 MG/2 ML Vial ONE (20:31)
[2024-04-26] MEDS ORDERED: Morphine 4 MG/ML VIAL ONE (20:31)
[2024-04-26 20:36] LABS: BHCG - Serum Negative (NEGATIVE); Pregs Control Background? CLEAR/WHITE (CLR/WHITE); Pregs Control Bar Appear? YES (CONTROL BAR)
[2024-04-26 20:44] LABS: ALT (SGPT) 12 U/L (8-55); AST (SGOT) 17 U/L (5-34); Alkaline Phosphatase 82 U/L (40-110); Anion Gap 10 mmol/L (10-20); BUN (Urea Nitrogen) 7 mg/dL (9.8-20.1); Bilirubin, Total 0.6 mg/dL (0.2-1.2); Calc. Creatinine Clearance 0 mL/min (70-130); Calcium 9.9 mg/dL (7.8-10.44); Carbon Dioxide 20 mmol/L (22-29); Chloride 112 mmol/L (98-107); Estimated GFR 101; Globulin 3.9 g/dL (2.4-3.5); Glucose 92 mg/dL (70-105); Lipase 75 U/L (8-78); Potassium 3.7 mmol/L (3.5-5.1); Protein, Total 7.9 g/dL (6.0-8.3); Sodium 138 mmol/L (136-145)
[2024-04-26 21:04] LABS: Bacteria/HPF None Seen HPF (None Seen); Bilirubin Negative (Negative); Blood, Urine 1+ (Negative); CAUTI Indications for Culture Pelvic or flank pain; Clarity Clear (Clear); Glucose, Urine (Dipstick) Normal (Negative); Ketone, Urine Negative (Negative); Leukocyte Negative Leu/uL (Negative); Nitrite Negative (Negative); Protein, Urine (Dipstick) 10 mg/dL (Neg-Trace); Specific Gravity, Urine 1.015 (1.002-1.036); Squamous Epithelial 0-3 HPF (0-3); Urobilinogen Normal mg/dL (Less than 2); WBC/HPF 0-3 HPF (0-3); pH, Urine 6.5 (5.0-9.0)
[2024-04-26 21:19] LABS: Urine Culture Reflex No No
== END 2024-04-26 23:00 | disposition home or self-care (01) ==
LOC: ERS 18:46
DX: K52.9 Noninfective gastroenteritis and colitis, unspecified (principal)
CPT/HCPCS: 36415; 74177; 80053; 81001; 83690; 84703; 85025; 96365; 96375; J1200; J2272; J2405; J2919; J3490; Q9967

== ENCOUNTER 2024-05-02 07:35 | Emergency (ER) | payer SELFPAY ==
[2024-05-02 08:13] LABS: #Basophils 0.04 10x3/uL (0.0-0.2); %Basophils 0.4 % (0.0-1.0); %Eosinophils 1.5 % (0.0-10.0); %Lymphocytes 25.3 % (21.0-51.0); %Monocytes 7.6 % (0.0-10.0); %Neutrophils 64.8 % (42.0-75.0); Hematocrit 39.5 % (36.0-47.0); Hemoglobin 13.4 g/dL (12.0-16.0); Mean Corpuscular HGB CONC 33.9 g/dL (32.0-36.0); Mean Corpuscular Hemoglobin 29.6 pg (27.0-31.0); Mean Corpuscular Volume 87.4 fL (78.0-98.0); Mean Platelet Volume 8.6 fL (7.4-10.4); Platelet Count 246 10x3/uL (130-400); RBC Distribution Width 15.4 % (11.5-14.5); Red Blood Cell (RBC) Count 4.52 mill/uL (4.20-5.40)
[2024-05-02 08:36] LABS: ALT (SGPT) 11 U/L (8-55); AST (SGOT) 14 U/L (5-34); Albumin 3.7 g/dL (3.5-5.0); Alkaline Phosphatase 88 U/L (40-110); Anion Gap 14 mmol/L (10-20); BUN (Urea Nitrogen) 16 mg/dL (9.8-20.1); Bilirubin, Total 0.2 mg/dL (0.2-1.2); Calc. Creatinine Clearance 0 mL/min (70-130); Calcium 9.2 mg/dL (7.8-10.44); Carbon Dioxide 22 mmol/L (22-29); Chloride 108 mmol/L (98-107); Estimated GFR 93; Globulin 3.4 g/dL (2.4-3.5); Glucose 102 mg/dL (70-105); Potassium 3.8 mmol/L (3.5-5.1); Protein, Total 7.1 g/dL (6.0-8.3); Sodium 140 mmol/L (136-145)
[2024-05-02] MEDS ORDERED: diphenhydrAMINE 50 MG/ML VIAL ONE (08:54)
[2024-05-02] MEDS ORDERED: methylPREDNISolone Sod Succ 40 MG VIAL ONE (08:55)
[2024-05-02] MEDS ORDERED: Morphine 2 MG/ML VIAL ONE ×3 (08:55→13:53)
[2024-05-02] MEDS ORDERED: Ondansetron PF 4 MG/2 ML Vial ONE (08:55)
[2024-05-02] MEDS ORDERED: Famotidine/PF 20 mg/2ml Vial ONE (08:55)
[2024-05-02 09:15] LABS: Troponin I Less than 0.010 ng/mL (< 0.028)
[2024-05-02 09:49] LABS: Bilirubin Negative (Negative); Blood, Urine Negative (Negative); CAUTI Indications for Culture Pelvic or flank pain; Calcium Oxalate Crystals 4+ HPF (None Seen); Clarity Clear (Clear); Glucose, Urine (Dipstick) Normal (Negative); Ketone, Urine Trace mg/dL (Negative); Leukocyte 25 Leu/uL (Negative); Nitrite Negative (Negative); Protein, Urine (Dipstick) Negative (Neg-Trace); RBC/HPF 0-3 HPF (0-3); Specific Gravity, Urine 1.018 (1.002-1.036); Squamous Epithelial 0-3 HPF (0-3); Urobilinogen Normal mg/dL (Less than 2); pH, Urine 6.5 (5.0-9.0)
[2024-05-02 09:50] LABS: Bacteria/HPF 1+ HPF (None Seen)
[2024-05-02 09:51] LABS: Urine Culture Reflex No No
[2024-05-02] MEDS ORDERED: Iopamidol-370 76% 500 ML MDV (1 ML CHARGE) ONE (10:35)
[2024-05-02] MEDS ORDERED: Dicyclomine 20 MG TAB ONE (10:50)
[2024-05-02 13:26] LABS: Campy jejuni + coli by PCR Negative (Negative); STEC Shiga Toxin 1+2 Negative (Negative); Salmonella spp. by PCR Negative (Negative); Shigella spp + EIEC by PCR Negative (Negative)
== END 2024-05-02 14:00 | disposition home or self-care (01) ==
LOC: ERS 07:35
DX: K52.9 Noninfective gastroenteritis and colitis, unspecified (principal); F17.210 Nicotine dependence, cigarettes, uncomplicated; I10 Essential (primary) hypertension; Z86.711 Personal history of pulmonary embolism
CPT/HCPCS: 71045; 74178; 76705; 80053; 81001; 83690; 84484; 85025; 87324; 87449; 87505; 93005; 96361; 96374; 96375; 96376; J1200; J2272; J2405; J2919; J3490; Q9967